=== PATIENT | male | born 1990 | race Caucasian/White ===

== ENCOUNTER 2019-11-27 17:47 | Emergency (ER) | payer OTHER ==
--- NOTE | 2019-11-27 19:54 | EDM.PDOC ---
ED HPI GENERAL MEDICAL PROBLEM - General Chief Complaint: ENT Problem Stated Complaint: PAIN MEDS FOR TEETH Time Seen by Provider: 11/27/19 19:30 Source of Information: Reports: Patient History Limitations: Reports: No Limitations - History of Present Illness INITIAL COMMENTS - FREE TEXT/NARRATIVE: 29-year-old male that has worsening dental pain in the left mandible, he fractured a piece of his first molar on the left side 5 days ago, the pain was controlled with ibuprofen for the first 3 days but over the past 48 hours it is worsened, he has developed some swelling and he called the dentist office today and nobody was open on a Saturday. No facial swelling. No fevers or chills. Onset: Gradual Duration: Day(s): (2 to 5 days) Location: Reports: Face (Left mandible) Associated Symptoms: Reports: No Other Symptoms Lower Tooth/Teeth Pain Score (Numeric/FACES): 5 - Related Data Allergies Allergy/AdvReac Type Severity Reaction Status Date / Time No Known Allergies Allergy Verified 11/27/19 19:21 Home Meds: Home Meds NK [No Known Home Meds] 11/27/19 [History] Past Medical History Musculoskeletal History: Reports: Fracture Neurological History: Reports: Concussion - Infectious Disease History Infectious Disease History: Reports: Chicken Pox - Past Surgical History Musculoskeletal Surgical History: Reports: Shoulder Surgery, Other (See Below) Other Musculoskeletal Surgeries/Procedures:: knee surgery back surgery Social & Family History - Tobacco Use Smoking Status *Q: Never Smoker Second Hand Smoke Exposure: No - Caffeine Use Caffeine Use: Reports: Coffee - Alcohol Use Days Per Week of Alcohol Use: 0 - Recreational Drug Use Recreational Drug Use: No ED ROS ENT - Review of Systems Review Of Systems: See Below Constitutional: Denies: Fever, Chills Respiratory: Denies: Shortness of Breath Cardiovascular: Denies: Chest Pain GI/Abdominal: Denies: Abdominal Pain Skin: Denies: Erythema Neurological: Denies: Headache ED EXAM, ENT - Physical Exam Exam: See Below Exam Limited By: No Limitations General Appearance: Alert, No Apparent Distress (Looks uncomfortable but not distressed) Mouth/Throat: Other (Patient has advanced dental decay of the molars bilaterally on the mandible. On the left there is gingival erythema and swelling at the base of the first molar which is fractured, decayed and is tender) Head: Atraumatic Neck: Normal Inspection. No: Lymphadenopathy (R), Lymphadenopathy (L) Course - Vital Signs Last Recorded V/S: Last Vital Signs Temp 97.1 F 11/27/19 19:20 Pulse 71 11/27/19 19:20 Resp 16 11/27/19 19:20 BP 150/99 H 11/27/19 19:20 Pulse Ox 96 11/27/19 19:20 - Re-Assessments/Exams Free Text/Narrative Re-Assessment/Exam: 11/27/19 19:53 Patient was placed on penicillin 500 mg 4 times a day, and given 20 hydrocodone to get through the weekend. A [employer] search was done and there was no past history of narcotic use. He can return if worsening such as facial swelling or fever, otherwise he needs to see a dentist next week. Departure - Departure Time of Disposition: 20:00 Disposition: Home, Self-Care 01 Clinical Impression: Dental abscess - Discharge Information Instructions: Dental Abscess, [id number] Referrals: PCP,None [Primary Care Provider] - Forms: ED Department Discharge Care Plan Goals: Take antibiotic 4 times a day as prescribed, continue with ibuprofen and add stronger pain medication if needed. See a dentist as soon as possible next week. Return sooner if worsening despite treatment such as facial swelling, fever, or nausea and vomiting. Sepsis Event Note - Evaluation Sepsis Screening Result: No Definite Risk - Focused Exam Vital Signs: Vital Signs Temp Pulse Resp BP Pulse Ox 11/27/19 19:20 97.1 F 71 16 150/99 H 96 Date Exam was Performed: 11/27/19 Time Exam was Performed: 20:54
== END 2019-11-27 19:59 | disposition home or self-care (01) ==
LOC: JP.ED 17:47
DX: K04.7 Periapical abscess without sinus (principal)
CPT/HCPCS: 99282

== ENCOUNTER 2022-02-16 23:14 | Emergency (ER) | payer OTHER ==
[2022-02-17] MEDS ORDERED: Sucralfate 1 GM Tab PO ONE (00:09)
== END 2022-02-17 00:20 | disposition home or self-care (01) ==
LOC: JP.ED 23:14
DX: K21.00 Gastro-esophageal reflux disease with esophagitis, without bleeding (principal); K22.4 Dyskinesia of esophagus
CPT/HCPCS: 36415; 80053; 84484; 85025; 85379; 86140; 93005; 93010; 99283; 99285-25; A9270-GY

== ENCOUNTER 2022-09-01 04:07 | Emergency (ER) | payer OTHER ==
[2022-09-01] MEDS ORDERED: Pantoprazole 40 MG Vial ONE (04:47)
[2022-09-01] MEDS ORDERED: Lidocaine 2% Viscous Solution 15 ML UD ONE (04:47)
[2022-09-01] MEDS ORDERED: Morphine 2 MG/ML SYRINGE ONE (04:47)
[2022-09-01] MEDS ORDERED: Ondansetron 4 MG/2 ML SDV ONE (04:47)
[2022-09-01] MEDS ORDERED: Aluminum Hydroxide/Magnesium Hydroxide/Simethicone Susp 30 ML Cup ONE (04:47)
[2022-09-26 10:10] LABS: ESTIMATED GFR 91 mL/min (>60)
[2022-09-28 01:05] LABS: TROPONIN I HIGH SENSITIVITY < 4.0 pg/mL (<=60.3)
== END 2022-09-01 07:23 | disposition home or self-care (01) ==
LOC: JP.ED 04:07
DX: R07.89 Other chest pain (principal); K21.9 Gastro-esophageal reflux disease without esophagitis; E66.9 Obesity, unspecified
CPT/HCPCS: 36415; 71045; 80053; 84484; 85027; 93005; 96374; 96375; 99285; A9270; C9113; J2270; J2405

== ENCOUNTER 2025-04-29 19:42 | Emergency (ER) | payer BC, OTHER ==
[2025-04-29] MEDS: Diphtheria,Pertussis(Acell),Tetanus Vaccine 0.5 ML Syringe IM ONE (20:36)
[2025-04-29] MEDS: Bacitracin Oint 1 GM U/D Packet TOP ONE (20:38)
[2025-04-29] MEDS: Cephalexin 250 MG Cap PO ONE (21:14)
== END 2025-04-29 21:37 | disposition home or self-care (01) ==
LOC: JP.ED 19:42
DX: S62.646B Nondisplaced fracture of proximal phalanx of right little finger, initial encounter for open fracture (principal); K21.9 Gastro-esophageal reflux disease without esophagitis; Z79.899 Other long term (current) drug therapy; V86.56XA Driver of dirt bike or motor/cross bike injured in nontraffic accident, initial encounter; Z23 Encounter for immunization
CPT/HCPCS: 73130; 90471; 90715; 99283; A9270